=== PATIENT | female | born 2000 | race African-American/Black ===

== ENCOUNTER 2021-04-21 15:01 | Emergency (ER) | payer SELFPAY ==
[~2021-04-21] VITALS: Ht 167.6 cm; Wt 108.9 kg
[2021-04-21] MEDS ORDERED: CEPH-509 PO (16:11)
[2021-04-21] MEDS ORDERED: IBUP800T27 PO (16:11)
[2021-04-21 16:16] VITALS: BP 164/103
== END 2021-04-21 16:55 | disposition home or self-care (01) ==
LOC: ER 15:01
DX: M67.442 Ganglion, left hand (principal)

== ENCOUNTER 2021-04-27 16:08 | Emergency (ER) | payer SELFPAY ==
[~2021-04-27] VITALS: Ht 167.6 cm; Wt 108.9 kg
[~2021-04-27 16:08] MED LIST: CEPH-509 PO; IBUP800T27 PO
[2021-04-27 16:11] VITALS: BP 166/102
[2021-04-27] MEDS ORDERED: cefTRIAXone SOD 1,000 MG VL IM ONE (17:45)
[2021-04-27] MEDS ORDERED: NAP500T PO (18:00)
[2021-04-27] MEDS ORDERED: CLIN300C8 PO (18:00)
[2021-04-27] MEDS ORDERED: ACETAMINOPHEN/CODEINE#3 (300/30mg) TAB PO ONE (18:15)
[2021-04-27] MEDS ORDERED: ONDANSETRON ODT 4 MG TAB PO ONE (18:15)
== END 2021-04-27 18:20 | disposition home or self-care (01) ==
LOC: ER 16:08
DX: L03.114 Cellulitis of left upper limb (principal); J45.909 Unspecified asthma, uncomplicated
CPT/HCPCS: 96372; 99283; J0696; Q0162